=== PATIENT | male | born 1990 ===

== ENCOUNTER 2017-08-29 10:14 | Emergency (ER) | payer MEDICAID ==
[2017-08-29 10:25] VITALS: BP 123/74; PULSE 85; RESP 18; TEMP 97.9; O2SAT 99
--- NOTE | 2017-08-29 11:37 | C.PDOC ---
History Of Present Illness 26 yr old male presents to the ER requesting a left arm cast change. Patient was seen on 08/24 and was diagnosed with comminuted distal radial fracture, placed in a splint and referred to DR. Riley. Patient states he called and was informed they do not accept his insurance. Patient states he also called his insurance and 2 other places, was told they do not deal with they type of fracture he has. Patient returns today requesting further information. Denies new trauma, neck pain, back pain, weakness or numbness. Time Seen by Provider: 08/29/17 11:14 Chief Complaint (Nursing): Upper Extremity Problem/Injury History Per: Patient History/Exam Limitations: no limitations Onset/Duration Of Symptoms: Days Past Medical History Reviewed: Historical Data, Nursing Documentation, Vital Signs Vital Signs: Last Vital Signs Temp 97.9 F 08/29/17 10:20 Pulse 85 08/29/17 10:20 Resp 18 08/29/17 10:20 BP 123/74 08/29/17 10:20 Pulse Ox 99 08/29/17 12:50 - Medical History PMH: Seizures Family History: States: No Known Family Hx - Social History Hx Tobacco Use: No Hx Alcohol Use: No Hx Substance Use: No - Immunization History Hx Tetanus Toxoid Vaccination: No Hx Influenza Vaccination: No Hx Pneumococcal Vaccination: No Review Of Systems Except As Marked, All Systems Reviewed And Found Negative. Musculoskeletal: Positive for: Other ((+) Left arm in a splint.). Negative for : Neck Pain, Back Pain Neurological: Negative for: Weakness, Numbness Physical Exam - Physical Exam Appears: Non-toxic, No Acute Distress Skin: Warm, Dry, No Rash Head: Atraumatic, Normacephalic Extremity: Normal ROM, Other ((+) Left arm in a splint. Able to move left wrist.) Neurological/Psych: Oriented x3, Normal Speech, Normal Motor ED Course And Treatment O2 Sat by Pulse Oximetry: 99 (RA) Pulse Ox Interpretation: Normal Progress Note: I spoke to Tabitha Jin regarding patient case and is looking into helping the patient for a follow up. Medical Decision Making Medical Decision Making: Patient connected with the labels molder service Disposition Counseled Patient/Family Regarding: Diagnosis, Need For Followup - Disposition Referrals: [facility] [Outside] Disposition: HOME/ ROUTINE Disposition Time: 12:48 Condition: STABLE Additional Instructions: Call Judie at [phone] Instructions: [facility] (ED) Forms: [facility] (Taiwanese), General Discharge Instructions - POA Present On Arrival: None - Clinical Impression Clinical Impression: Fracture of bone - Scribe Statement The provider has reviewed the documentation as recorded by the Samanthaibe Jeni Bullard Provider Attestation: All medical record entries made by the Samanthaibdaniela were at my direction and personally dictated by me. I have reviewed the chart and agree that the record accurately reflects my personal performance of the history, physical exam, medical decision making, and the department course for this patient. I have also personally directed, reviewed, and agree with the discharge instructions and disposition.
== END 2017-08-29 13:04 | disposition home or self-care (01) ==
LOC: C.ER 10:14
DX: S52.502D Unspecified fracture of the lower end of left radius, subsequent encounter for closed fracture with routine healing (principal); W18.30XD Fall on same level, unspecified, subsequent encounter

== ENCOUNTER 2017-11-24 19:56 | Emergency (ER) | payer SELFPAY ==
[2017-11-24] MEDS ORDERED: Sodium Chloride 0.9% 1,000 ML IV ONE (20:56)
[2017-11-24] MEDS ORDERED: Sodium Chloride 0.9% 1,000 ML ONE (21:20)
[2017-11-24 21:35] LABS: BASO # 0.1 K/uL (0.0-0.2); BASO % 1.1 % (0.0-2.0); HEMOGLOBIN 15.1 g/dL (12.0-18.0); LYMPH # 1.1 K/uL (1.0-4.3); LYMPH % 9.2 % (20.0-40.0); MEAN PLATELET VOLUME 8.9 fL (7.2-11.7); MONO # 0.8 K/uL (0.0-0.8); MONO % 6.7 % (0.0-10.0); PLATELET COUNT 238 K/uL (130-400); RBC 5.05 Mil/uL (4.40-5.90); RED CELL DISTRIBUTION WIDTH 12.7 % (11.5-14.5); WHITE BLOOD COUNT 12.1 K/uL (4.8-10.8)
[2017-11-24 21:57] LABS: ALB/GLOB RATIO 1.3 (1.0-2.1); ALBUMIN 4.7 g/dL (3.5-5.0); CALCIUM 8.9 mg/dl (8.6-10.4); GFR AFRICAN-AMERICAN > 60; GFR NON-AFRICAN AMERICAN > 60
[2017-11-24 22:07] LABS: ALT/SGPT 59 U/L (21-72); AST/SGOT 28 U/L (17-59); BLOOD UREA NITROGEN 8 mg/dL (9-20)
[2017-11-24 22:15] LABS: BANDS 1 % (0-2); LYMPHOCYTE 19 % (20-40); MONOCYTE 5 % (0-10); NEUTROPHIL 75 % (50-75); PLATELET ESTIMATE NORMAL (NORMAL); TOTAL CELLS COUNTED 100
--- NOTE | 2017-11-24 23:50 | C.PDOC ---
History Of Present Illness Patient is a 27 year old male with a past medical history of epilepsy, brought in to the ER for evaluation after seizures. Had 4 seizures while at home tonight. Upon arrival, patient is alert and oriented. He sustained an abrasion to his face, but no other injuries, tongue biting, or incontinence. Time Seen by Provider: 11/24/17 20:50 Chief Complaint (Nursing): Seizure History Per: Patient, Family History/Exam Limitations: no limitations Recent Seizure Activity Began: Just Before Arrival Number Of Seizures: Multiple Post-ictal Period: No Past Medical History Reviewed: Historical Data, Nursing Documentation, Vital Signs Vital Signs: Last Vital Signs Temp 99.3 F 11/25/17 02:23 Pulse 70 11/25/17 02:23 Resp 18 11/25/17 02:23 BP 113/72 11/25/17 02:23 Pulse Ox 98 11/25/17 05:21 - Medical History PMH: Seizures Family History: States: Unknown Family Hx - Social History Hx Tobacco Use: No Hx Alcohol Use: No Hx Substance Use: No - Immunization History Hx Tetanus Toxoid Vaccination: No Hx Influenza Vaccination: No Hx Pneumococcal Vaccination: No Review Of Systems Except As Marked, All Systems Reviewed And Found Negative. Constitutional: Negative for: Fever ENT: Negative for: Other (tongue biting) Genitourinary: Negative for: Incontinence (bowel or bladder) Skin: Positive for: Other (abrasion to face). Negative for: Lesions, Bruising Neurological: Positive for: Seizures. Negative for: Headache Physical Exam - Physical Exam Appears: Non-toxic, No Acute Distress Skin: Normal Color, Warm, Dry Head: Normacephalic, Abrasion (Superficial abrasion to right side of face, with no wound tenderness or deformity ) Eye(s): bilateral: Normal Inspection, PERRL, EOMI Ear(s): Bilateral: Normal Oral Mucosa: Moist Tongue: Normal Appearing, No Bite, No Laceration Neck: Normal ROM, No Midline Cervical Tenderness, No Paracervical Tenderness, Supple Chest: Symmetrical Cardiovascular: Rhythm Regular, No Murmur Respiratory: Normal Breath Sounds, No Accessory Muscle Use Gastrointestinal/Abdominal: Normal Exam, Soft, No Tenderness Back: Normal Inspection, No CVA Tenderness, No Vertebral Tenderness Extremity: Bilateral: Atraumatic, Normal Color And Temperature, Normal ROM Neurological/Psych: Oriented x3, Normal Speech ED Course And Treatment - Laboratory Results Result Diagrams: 11/24/17 21:20 11/24/17 21:20 O2 Sat by Pulse Oximetry: 98 (RA) Pulse Ox Interpretation: Normal Medical Decision Making Medical Decision Making: Time: 20:56 Initial Plan: * EKG * CMP * Dilantin * CBC * Accucheck * IV fluids * Reevaluation Labs reviewed, revealing low level of dilantin. Medically stable for discharge. Counseled patient regarding seizure disorder, advised to follow up with PMD Disposition Counseled Patient/Family Regarding: Diagnosis - Disposition Referrals: [facility] [Outside] Disposition: HOME/ ROUTINE Disposition Time: 02:11 Condition: STABLE Instructions: Epilepsy (GEN) Forms: [facility] [facility] (Malay), Gen Discharge Inst Citizen Of [place] Print Language: ANGUILLAN - POA Present On Arrival: None - Clinical Impression Clinical Impression: Seizure disorder - Scribe Statement The provider has reviewed the documentation as recorded by the Samanthaibdaniela Constantino Provider Attestation: All medical record entries made by the Samanthaibe were at my direction and personally dictated by me. I have reviewed the chart and agree that the record accurately reflects my personal performance of the history, physical exam, medical decision making, and the department course for this patient. I have also personally directed, reviewed, and agree with the discharge instructions and disposition.
[2017-11-25] MEDS ORDERED: Fosphenytoin 500 MG in Dextrose 5% In Water 50 ML IV STA (00:31)
[2017-11-25 02:23] VITALS: BP 113/72; PULSE 70; RESP 18; TEMP 99.3
[2017-11-25 05:21] VITALS: O2SAT 98
--- NOTE | 2017-11-26 15:11 | CARD ---
APPROVED REPORT EKG Measurement Heart [id number] DC [id number] <Conclusion> Normal sinus rhythm Normal ECG
== END 2017-11-25 02:25 | disposition home or self-care (01) ==
LOC: C.ER 19:56
DX: G40.909 Epilepsy, unspecified, not intractable, without status epilepticus (principal)
CPT/HCPCS: 80053; 80185; 82948; 85025; 93005; 96361; 96365; 99285; J7040; Q2009

== ENCOUNTER 2019-01-28 22:01 | Emergency (ER) | payer SELFPAY ==
[2019-01-28] MEDS ORDERED: Sodium Chloride 0.9% 1,000 ML IV ONE (22:16)
[2019-01-28] MEDS ORDERED: Fosphenytoin 500 MG in Dextrose 5% In Water 50 ML IV STA (22:17)
--- NOTE | 2019-01-28 22:18 | C.PDOC ---
History Of Present Illness 28 year old male with PMHx of seizures is brought to the ED by EMS for evaluation of seizure. Patient is accompanied by mother who witnessed the seizure. Patient reports he ran out of his medications few days ago. Patient denies fever, chills, CP, SOB, headache, visual changes, bowel incontinence, weakness, numbness. Chief Complaint (Nursing): Seizure History Per: Patient, EMS, Family History/Exam Limitations: no limitations Recent Seizure Activity Began: Just Before Arrival Number Of Seizures: One Length Of Seizures (Duration): Unknown Quality Of Seizure: Generalized Precipitating Factor(s): Missed Dose Of Anti-seizure Medication Associated Symptoms: Bit Tongue Post-ictal Period: No Recent travel outside of the [place]: No Additional History Per: Patient, Family Past Medical History Reviewed: Historical Data, Nursing Documentation, Vital Signs Vital Signs: Last Vital Signs Temp 99 F 01/28/19 22:07 Pulse 105 H 01/28/19 22:07 Resp 16 01/28/19 22:07 BP 106/67 01/28/19 22:07 Pulse Ox 95 01/28/19 22:07 - Medical History PMH: Seizures Surgical History: No Surg Hx Family History: States: Unknown Family Hx - Social History Hx Tobacco Use: No Hx Alcohol Use: No Hx Substance Use: No - Immunization History Hx Tetanus Toxoid Vaccination: No Hx Influenza Vaccination: No Hx Pneumococcal Vaccination: No Review Of Systems Constitutional: Negative for: Fever, Chills Eyes: Negative for: Vision Change Cardiovascular: Negative for: Chest Pain Respiratory: Negative for: Shortness of Breath Gastrointestinal: Negative for: Nausea, Vomiting, Abdominal Pain Skin: Negative for: Rash Neurological: Negative for: Weakness, Numbness, Headache, Dizziness Physical Exam - Physical Exam Appears: Non-toxic, No Acute Distress Skin: Normal Color, Warm, Dry Head: Atraumatic, Normacephalic Eye(s): bilateral: Normal Inspection, PERRL, EOMI Oral Mucosa: Moist Neck: Normal ROM, Supple Chest: Symmetrical Cardiovascular: Rhythm Regular Respiratory: Normal Breath Sounds, No Rales, No Rhonchi, No Wheezing Gastrointestinal/Abdominal: Soft, No Tenderness, No Guarding, No Rebound Extremity: Normal ROM, No Tenderness, No Swelling Neurological/Psych: Oriented x3, Normal Speech, Normal Cognition, Other (non focal) Gait: Steady ED Course And Treatment - Laboratory Results Result Diagrams: 01/28/19 22:53 01/28/19 22:53 ECG: Interpreted By Me, Viewed By Me ECG Rhythm: Sinus Rhythm ECG Interpretation: Normal Interpretation Of ECG: NSR, normal tracings. Rate From EC O2 Sat by Pulse Oximetry: 95 (ON RA) Pulse Ox Interpretation: Normal Medical Decision Making Medical Decision Making: Plan: * EKG * Labs * Cerebryx IV * IV fluids Disposition Counseled Patient/Family Regarding: Diagnosis - Disposition Referrals: [facility] [Outside] Disposition: HOME/ ROUTINE Disposition Time: 01:00 Condition: STABLE Prescriptions: Phenytoin, Extended [Dilantin Kapseals] 100 mg PO QID #120 cer Instructions: Seizures, Adult (DC) Forms: [employer] [facility] (Czech) - POA Present On Arrival: None - Clinical Impression Clinical Impression: Seizure disorder - Scribe Statement The provider has reviewed the documentation as recorded by the Scribe Alexandru Pope All medical record entries made by the Scribe were at my direction and personally dictated by me. I have reviewed the chart and agree that the record accurately reflects my personal performance of the history, physical exam, medical decision making, and the department course for this patient. I have also personally directed, reviewed, and agree with the discharge instructions and disposition.
[2019-01-28] MEDS ORDERED: Sodium Chloride 0.9% 1,000 ML ONE (22:24)
[2019-01-28 22:58] LABS: BASO # 0.1 K/uL (0.0-0.2); BASO % 0.7 % (0.0-2.0); EOS # 0.1 K/uL (0.0-0.7); EOS % 0.7 % (0.0-4.0); HEMOGLOBIN 15.1 g/dL (12.0-18.0); LYMPH # 2.3 K/uL (1.0-4.3); LYMPH % 20.6 % (20.0-40.0); MEAN CORPUSCULAR HGB CONC 32.8 g/dL (33.0-37.0); MEAN PLATELET VOLUME 9.2 fL (7.2-11.7); MONO # 0.6 K/uL (0.0-0.8); MONO % 5.2 % (0.0-10.0); NEUT # 8.2 K/uL (1.8-7.0); NEUT % 72.8 % (50.0-75.0); RBC 5.03 Mil/uL (4.40-5.90); RED CELL DISTRIBUTION WIDTH 13.3 % (11.5-14.5); WHITE BLOOD COUNT 11.3 K/uL (4.8-10.8)
[2019-01-28 23:06] LABS: MEAN CELL VOLUME 91.3 fL (80.0-94.0)
[2019-01-28 23:09] LABS: ALB/GLOB RATIO 1.7 (1.0-2.1); ALT/SGPT 17 U/L (21-72); AST/SGOT 22 U/L (17-59); BLOOD UREA NITROGEN 6 mg/dL (9-20); CALCIUM 9.4 mg/dl (8.6-10.4); GFR NON-AFRICAN AMERICAN > 60
[2019-01-28] MEDS ORDERED: DEXTROSE 5% IV STA (23:53)
[2019-01-28] MEDS ORDERED: WATER IV STA (23:53)
[2019-01-28] MEDS ORDERED: FOSPHENYTOIN IV STA (23:53)
[2019-01-29 00:40] VITALS: BP 110/68; PULSE 85; RESP 16; TEMP 98.3
[2019-01-29 01:13] VITALS: O2SAT 95
--- NOTE | 2019-01-30 20:49 | CARD ---
APPROVED REPORT Date of service: 01/28/2019 EKG Measurement Heart [id number] IN 150P38 [id number] <Conclusion> Normal sinus rhythm Normal ECG
== END 2019-01-29 00:40 | disposition home or self-care (01) ==
LOC: C.ER 22:01
DX: G40.909 Epilepsy, unspecified, not intractable, without status epilepticus (principal)
CPT/HCPCS: 80053; 80185; 82948; 85025; 93005; 96365; 96376; 99285; J7030; Q2009